=== PATIENT | male | born 1955 | race American Indian/Alaskan Native ===

== ENCOUNTER 2020-09-18 07:15 | Emergency (ER) | payer BC ==
[2020-09-18 07:26] VITALS: BP 139/83
[2020-09-18] MEDS ORDERED: IBUPROFEN 800 MG TAB PO ONE (08:12)
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
== END 2020-09-18 08:46 | disposition home or self-care (01) ==
LOC: ED 07:15
DX: R51.9 Headache, unspecified (principal); V49.49XA Driver injured in collision with other motor vehicles in traffic accident, initial encounter; Y92.410 Unspecified street and highway as the place of occurrence of the external cause; Y93.89 Activity, other specified; Y99.8 Other external cause status
CPT/HCPCS: 99282

== ENCOUNTER 2022-01-10 18:13 | Emergency (ER) | payer BC ==
[2022-01-10 18:31] VITALS: BP 133/69
== END 2022-01-12 00:49 | disposition left against medical advice (07) ==
LOC: ED 18:13
DX: R05.9 Cough, unspecified (principal); Z53.21 Procedure and treatment not carried out due to patient leaving prior to being seen by health care provider